=== PATIENT | male | born 1980 | race African-American/Black ===

== ENCOUNTER 2018-08-20 22:54 | Emergency (ER) | payer SELFPAY ==
[~2018-08-20] VITALS: Ht 167.6 cm; Wt 84.8 kg
--- NOTE | 2018-08-20 23:13 | NUR ---
ED Nurse Note: Received report. Pt from home, AAOx4, ambulatory, c/o wanting to hurt himself but has no plans made. Pt stated he took cocaine and he smells of marijuana. Will assess and carry out ER MD's orders.
[2018-08-20 23:16] VITALS: BP 149/80
[2018-08-20] MEDS ORDERED: LORazepam Inj 2mg/ml 1ml IV ONE (23:45)
[2018-08-20 23:47] LABS: APPEARANCE,URINE CLEAR; BILIRUBIN, URINE NEGATIVE (NEGATIVE); COLOR,URINE PALE YELLOW; GLUCOSE, URINE (UA) NEGATIVE (NEGATIVE); KETONES,URINE NEGATIVE (NEGATIVE); LEUKOCYTE ESTERASE ,URINE NEGATIVE (NEGATIVE); NITRITE,URINE NEGATIVE (NEGATIVE); PH,URINE 6 (4.5-8.0); PROTEIN,URINE NEGATIVE (NEGATIVE); UROBILINOGEN,URINE NORMAL MG/DL (0.0-1.0)
--- NOTE | 2018-08-20 23:56 | Emergency Room Report ---
History of Present Illness General Chief Complaint: Altered Mental Status Source: Patient, Friend (Bean Crandall MD) Present Illness HPI Is a 37-year-old male with no past medical history. He presents with chief complaint of feeling depressed and suicidal. Also said he felt panic attack. Was brought in by a friend. Another friend who is a psychologist was on the phone. Patient agreed to let me talk with his friend. Patient has been feeling depressed with dysthamia for about a year. He's been using illicit drugs also. Admit to using cocaine today. Earlier today he felt suicidal. Right now he denies suicidal thoughts but said he doesn't feel safe being alone. No particular plan. No history of psychiatric admission. Not on any medication. (Bean Crandall MD) Allergies: Coded Allergies: SHELLFISH DERIVED (Verified Allergy, Intermediate, Anaphylaxis, 08/20/18) Patient History Past Medical History: none, see triage record, old chart reviewed Past Surgical History: none Pertinent Family History: none Social History: Reports: smoking, drug use Immunizations: other Reviewed Nursing Documentation: PMH: Agreed; PSxH: Agreed (Bean Crandall MD) Nursing Documentation-PMH Past Medical History: No History, Except For History Of Psychiatric Problem: Yes - DEPRESSION (Bean Crandall MD) Review of Systems Eye: Denies: eye pain, blurred vision ENT: Denies: ear pain, nose congestion, throat swelling Respiratory: Denies: cough, shortness of breath Cardiovascular: Denies: chest pain, palpitations Gastrointestinal: Denies: abdominal pain, diarrhea, nausea, vomiting Musculoskeletal: Denies: back pain, joint pain Skin: Denies: rash Psychiatric: Reports: anxiety, depressed feelings, SI Neurological: Denies: headache, numbness Endocrine: Denies: increased thirst, increased urine Hematologic/Lymphatic: Denies: easy bruising All Other Systems: negative except mentioned in HPI (Bean Crandall MD) Physical Exam Vital Signs Date Time Temp Pulse Resp B/P (MAP) Pulse Ox O2 Delivery O2 Flow Rate FiO2 08/20/18 23:00 98.4 101 19 149/80 (103) 93 Room Air vitals unremarkable Sp02 EP Interpretation: reviewed, normal General Appearance: well appearing, no apparent distress, alert Head: normocephalic, atraumatic Eyes: bilateral eye PERRL, bilateral eye EOMI ENT: hearing grossly normal, normal pharynx Neck: full range of motion, supple, no meningismus Respiratory: chest non-tender, lungs clear, normal breath sounds Cardiovascular #1: regular rate, rhythm, no murmur Gastrointestinal: normal bowel sounds, non tender, no mass, no organomegaly, no bruit, non-distended Musculoskeletal: back normal, gait/station normal, normal range of motion Neurologic: alert, oriented x3 Psychiatric: depressed affect, other - vague suicidal thoughts Skin: warm/dry (Bean Crandall MD) Medical Decision Making Diagnostic Impression: Primary Impression: Major depressive disorder Qualified Codes: F32.3 - Major depressive disorder, single episode, severe with psychotic features Additional Impressions: Cocaine abuse Suicidal ideation Anxiety and depression ER Course Patient presents with depression and suicidal thoughts. No particular plan but does say he does not feel safe by himself. According to his ex-, he is also delusional and appear have some psychotic features. He is positive for cocaine. This may be drug induced. He sleeping comfortably after dose of Ativan here. He is willing to go voluntarily to a psychiatric facility. He is medically cleared. I signed pt out to Dr. Boles for final disposition. Lab Results Impression labs unremarkable (Bean Crandall MD) ER Course Patient was noted to me by Dr. Crandall. Patient was noted to have recent cocaine use and had been given Ativan prior to arrival. Patient was noted to have been sleeping. Patient was noted to have some improvement in his agitation. Patient stated that he felt better and wanted to leave. patient denied any suicidal thoughts.Patient does not appear to be holdable and stated he wanted to leave. Patient has good plan for self-care. Labs Test 08/20/18 23:10 08/21/18 00:06 Urine Color Pale yellow Urine Appearance Clear Urine pH 6 (4.5-8.0) Urine Specific [place] 1.015 (1.005-1.035) Urine Protein Negative (NEGATIVE) Urine Glucose (UA) Negative (NEGATIVE) Urine Ketones Negative (NEGATIVE) Urine Blood Negative (NEGATIVE) Urine Nitrite Negative (NEGATIVE) Urine Bilirubin Negative (NEGATIVE) Urine Urobilinogen Normal MG/DL (0.0-1.0) Urine Leukocyte Esterase Negative (NEGATIVE) Urine Opiates Screen Negative (NEGATIVE) Urine Barbiturates Screen Negative (NEGATIVE) Phencyclidine (PCP) Screen Negative (NEGATIVE) Urine Amphetamines Screen Negative (NEGATIVE) Urine Benzodiazepines Screen Negative (NEGATIVE) Urine Cocaine Screen Positive (NEGATIVE) Urine Marijuana (THC) Screen Positive (NEGATIVE) White Blood Count 14.1 K/UL (4.8-10.8) Red Blood Count 4.27 M/UL (4.70-6.10) Hemoglobin 13.5 G/DL (14.2-18.0) Hematocrit 38.7 % (42.0-52.0) Mean Corpuscular Volume 90 FL (80-99) Mean Corpuscular Hemoglobin 31.5 PG (27.0-31.0) Mean Corpuscular Hemoglobin Concent 34.8 G/DL (32.0-36.0) Red Cell Distribution Width 11.4 % (11.6-14.8) Platelet Count 301 K/UL (150-450) Mean Platelet Volume 5.5 FL (6.5-10.1) Neutrophils (%) (Auto) 80.5 % (45.0-75.0) Lymphocytes (%) (Auto) 12.8 % (20.0-45.0) Monocytes (%) (Auto) 5.4 % (1.0-10.0) Eosinophils (%) (Auto) 0.5 % (0.0-3.0) Basophils (%) (Auto) 0.9 % (0.0-2.0) Sodium Level 136 MMOL/L (136-145) Potassium Level 3.5 MMOL/L (3.5-5.1) Chloride Level 101 MMOL/L (98-107) Carbon Dioxide Level 24 MMOL/L (21-32) Anion Gap 11 mmol/L (5-15) Blood Urea Nitrogen 10 mg/dL (7-18) Creatinine 1.1 MG/DL (0.55-1.30) Estimat Glomerular Filtration Rate > 60 mL/min (>60) Glucose Level 109 MG/DL (74-106) Calcium Level 9.5 MG/DL (8.5-10.1) Total Bilirubin 0.4 MG/DL (0.2-1.0) Aspartate Amino Transf (AST/SGOT) 41 U/L (15-37) Alanine Aminotransferase (ALT/SGPT) 33 U/L (12-78) Alkaline Phosphatase 82 U/L (46-116) Total Protein 7.6 G/DL (6.4-8.2) Albumin 4.3 G/DL (3.4-5.0) Globulin 3.3 g/dL Albumin/Globulin Ratio 1.3 (1.0-2.7) Salicylates Level 4.0 ug/mL (2.8-20) Acetaminophen Level < 2 MCG/ML (10-30) Serum Alcohol < 3 mg/dL (Paco Boles MD) Last Vital Signs Date Time Temp Pulse Resp B/P (MAP) Pulse Ox O2 Delivery O2 Flow Rate FiO2 08/20/18 23:00 98.4 101 19 149/80 (103) 93 Room Air Status: improved (Bean Crandall MD) Status: improved (Paco Boles MD) Disposition: AGAINST MEDICAL ADVICE Condition: Stable Bean Crandall MD Aug 20, 2018 23:56 Paco Boles MD Aug 21, 2018 07:38
[2018-08-21 00:38] LABS: ANION GAP 11 mmol/L (5-15); BASOPHILS % (AUTO) 0.9 % (0.0-2.0); BLOOD UREA NITROGEN 10 mg/dL (7-18); CALCIUM 9.5 MG/DL (8.5-10.1); CARBON DIOXIDE 24 MMOL/L (21-32); CHLORIDE 101 MMOL/L (98-107); CREATININE 1.1 MG/DL (0.55-1.30); EOSINOPHILS % (AUTO) 0.5 % (0.0-3.0); HEMATOCRIT 38.7 % (42.0-52.0); HEMOGLOBIN 13.5 G/DL (14.2-18.0); LYMPHOCYTES % (AUTO) 12.8 % (20.0-45.0); MEAN CORPUSCULAR VOLUME 90 FL (80-99); MONOCYTES % (AUTO) 5.4 % (1.0-10.0); NEUTROPHILS % (AUTO) 80.5 % (45.0-75.0); PLATELET COUNT 301 K/UL (150-450); POTASSIUM 3.5 MMOL/L (3.5-5.1); RED BLOOD COUNT 4.27 M/UL (4.70-6.10); RED CELL DISTRIBUTION WIDTH 11.4 % (11.6-14.8); SODIUM 136 MMOL/L (136-145); WHITE BLOOD COUNT 14.1 K/UL (4.8-10.8)
[2018-08-21 00:43] LABS: ALANINE AMINOTRANSFERASE 33 U/L (12-78); ALBUMIN 4.3 G/DL (3.4-5.0); ALBUMIN/GLOBULIN RATIO 1.3 (1.0-2.7); ALKALINE PHOSPHATASE 82 U/L (46-116); ASPARTATE AMINO TRANSFERASE 41 U/L (15-37); BILIRUBIN,TOTAL 0.4 MG/DL (0.2-1.0)
--- NOTE | 2018-08-21 01:12 | NUR ---
ED Nurse Note: Pt d/c'd IV line due to it being uncomfortable. CN and made aware.
[2018-08-21 01:15] VITALS: BP 147/67
[2018-08-21 02:15] VITALS: BP 136/66
--- NOTE | 2018-08-21 02:25 | NUR ---
ED Nurse Note: Receved this patient from bed 07, AAO x4, VSS at this time, skin is dry, warm to touch, no acute disstress noticed.
--- NOTE | 2018-08-21 02:30 | NUR ---
ED Nurse Note: Andrei's belongings placed in locker #2.
--- NOTE | 2018-08-21 05:44 | NUR ---
ED Nurse Note: Patient is in the bed, sleeping, VSS at this time, no acute disstres noticed.
[2018-08-21 05:45] VITALS: BP 136/66
--- NOTE | 2018-08-21 07:24 | NUR ---
HAND-OFF: Report given to FRANCIS Doyle.
--- NOTE | 2018-08-21 07:25 | NUR ---
ED Nurse Note: REPORT RECEIVED FROM FRANCIS VINES. AFTER RECEIVING REPORT, PT CAME OUT OF THE ROOM AND STATED, ""I WANT TO LEAVE. I DON'T WANT TO BE HERE ANYMORE." ER STAFF INFORMED PT THAT WE WILL GET HIM HIS CLOTHES AND HE CAN GET DRESSED AND LEAVE. PT RAN OUT OF THE DOOR IN GOWN AND STATED HE'LL WAIT OUTSIDE. SECURITY CALLED.
--- NOTE | 2018-08-21 07:37 | NUR ---
ED Nurse Note: ER STAFF AND SECURITY ABLE TO CONVINCE PT TO GET DRESSED IN HIS CLOTHES AND OUT OF GOWN. PT DRESSED IN HIS CLOTHES AND WALKED OUT OF ER WITH STEADY GAIT AND ALL BELONGINGS. DR LEA MARLEY.
== END 2018-08-21 07:37 | disposition left against medical advice (07) ==
LOC: EMR 23:40
DX: F32.3 Major depressive disorder, single episode, severe with psychotic features (principal); F14.10 Cocaine abuse, uncomplicated; R45.851 Suicidal ideations; F41.9 Anxiety disorder, unspecified; Z91.013 Allergy to seafood; F17.200 Nicotine dependence, unspecified, uncomplicated
CPT/HCPCS: 36415; 80053; 80307; 81003; 85025; 96374; 99283; G0480; 80329